=== PATIENT | female | born 1995 | race Two or more races ===

== ENCOUNTER 2023-08-09 12:39 | Emergency (ER) | payer OTHER ==
[2023-08-09 13:23] LABS: BASOPHILS % (AUTO) 0.4 %; EOSINOPHILS # (AUTO) 0.1 10^3/uL (0.0-0.7); EOSINOPHILS % (AUTO) 2.1 %; HCT - HEMATOCRIT 39.7 % (37.0-47.0); HGB - HEMOGLOBIN 12.3 g/dL (12.0-16.0); LYMPHOCYTES % (AUTO) 35.9 %; MEAN CORPUSCULAR HEMOGLOBIN 25.4 pg (27.0-31.0); MEAN PLATELET VOLUME 9.8 fL (7.9-10.8); MONOCYTES # (AUTO) 0.4 10^3/uL (0.0-1.0); MONOCYTES % (AUTO) 7.9 %; NEUTROPHILS % (AUTO) 53.5 %; PLT - PLATELET COUNT 324 10^3/uL (130-450); RED BLOOD COUNT 4.84 10^6/uL (4.20-5.40); RED CELL DISTRIBUTION WIDTH 14.3 % (12.0-15.0); WHITE BLOOD COUNT 5.6 x10^3/uL (4.8-10.8)
--- NOTE | 2023-08-09 13:31 | ED Physician Documentation ---
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 Patient states she feels like the thoughts become intrusive and she cannot get them out of her head. She reports having thoughts of cutting herself or jumping off a bridge. She denies trying to hurt herself in the past. She does see a counselor at [facility] [employer] [facility] every 2 weeks and last saw her 1 week ago. She does not feel this is helpful feels like she needs more than outpatient counseling. She has been on medications for depression and anxiety in the past but states that these also have not helped. She reports stressors with family as well as her job. Her and son are in the waiting room. Denies alcohol or drug use.Does not take any medications regularly. Review of Systems Constitutional: denies: Fever Cardiac: denies: Chest pain / pressure Respiratory: denies: Dyspnea GI: denies: Abdominal Pain Psychiatric: reports: Depressed, Suicidal PD PAST MEDICAL HISTORY - Past Medical History Past Medical History: Yes Psych: Depression, Anxiety - Past Surgical History Past Surgical History: No HEENT: Myringotomy (tubes) - Present Medications Home Medications: Ambulatory Orders Medication Instructions Recorded Confirmed Levonorgestrel/Ethin.estradiol 1 each PO DAILY 08/09/23 08/09/23 [Kurvelo-28 Tablet] - Allergies Allergies/Adverse Reactions: Allergies Allergy/AdvReac Type Severity Reaction Status Date / Time No Known Drug Allergies Allergy Verified 08/09/23 12:59 - Social History Does the pt smoke?: No Smoking Status: Never smoker Does the pt drink ETOH?: No - Immunizations Immunizations are current?: No PD ED PE NORMAL - General General: Alert and oriented X 3, No acute distress, Well developed/nourished - HEENT HEENT: Atraumatic, Moist mucous membranes, Pharynx benign - Neck Neck: Supple, no meningeal sign - Cardiac Cardiac: RRR, Strong equal pulses - Respiratory Respiratory: No respiratory distress, Clear bilaterally - Abdomen Abdomen: Soft, Non tender, Non distended - Derm Derm: Warm and dry - Neuro Neuro: Alert and oriented X 3, No motor deficit, Normal speech - Psych Psych: Other (Withdrawn, soft-spoken, tearful) Results - Vitals Vitals: Vital Signs - 24 hr 08/09/23 08/09/23 12:54 16:00 Temperature 36.5 C 36.6 C Heart Rate 89 87 Respiratory 15 16 Rate Blood Pressure 123/81 H 123/84 H O2 Saturation 100 99 Oxygen O2 Source Room air - Labs Labs: Laboratory Tests 08/09/23 08/09/23 08/09/23 13:13 13:13 13:39 WBC 5.6 RBC 4.84 Hgb 12.3 Hct 39.7 MCV 82.0 MCH 25.4 L MCHC 31.0 L RDW 14.3 Plt Count 324 MPV 9.8 Neut # (Auto) 3.0 Lymph # (Auto) 2.0 [place] # (Auto) 0.4 Eos # (Auto) 0.1 Baso # (Auto) 0.0 Absolute Nucleated RBC 0.00 Nucleated RBC % 0.0 Sodium 138 Potassium 4.0 Chloride 107 Carbon Dioxide 26 Anion Gap 5.0 L BUN 11 Creatinine 0.8 Estimated GFR (MDRD) 87 L Glucose 83 Calcium 9.6 Magnesium 1.9 Total Bilirubin 0.6 AST 14 ALT 9 L Alkaline Phosphatase 81 Total Creatine Kinase 115 Total Protein 8.1 Albumin 4.3 Globulin 3.8 Albumin/Globulin Ratio 1.1 Lipase 13 TSH 2.34 Urine Color YELLOW Urine Clarity CLEAR Urine pH 6.0 Ur Specific Perrin 1.025 Urine Protein NEGATIVE Urine Glucose (UA) NEGATIVE Urine Ketones NEGATIVE Urine Occult Blood LARGE H Urine Nitrite NEGATIVE Urine Bilirubin NEGATIVE Urine Urobilinogen 0.2 (NORMAL) Ur Leukocyte Esterase NEGATIVE Urine RBC 6-10 H Urine WBC 0-3 Ur Squamous Epith Cells MOD Squamous H Urine Bacteria Few Ur Microscopic Review INDICATED Urine Culture Comments NOT INDICATED Urine HCG, Qual NEGATIVE Salicylates < 1.5 Urine Opiates Screen NEGATIVE Ur Buprenorphine Scrn NEGATIVE Ur Oxycodone Screen NEGATIVE Urine Methadone Screen NEGATIVE Acetaminophen 0.1 Ur Barbiturates Screen NEGATIVE Ur Tricyclics Screen NEGATIVE Ur Phencyclidine Scrn NEGATIVE Ur Amphetamine Screen NEGATIVE U Methamphetamines Scrn NEGATIVE U Benzodiazepines Scrn NEGATIVE Urine Cocaine Screen NEGATIVE U Cannabinoids Screen NEGATIVE Ur Drug Screen Comment CUTOFF CONC BELOW: Ethyl Alcohol < 10.0 SARS-CoV-2 (PCR) 08/09/23 13:51 WBC RBC Hgb Hct MCV MCH MCHC RDW Plt Count MPV Neut # (Auto) Lymph # (Auto) [place] # (Auto) Eos # (Auto) Baso # (Auto) Absolute Nucleated RBC Nucleated RBC % Sodium Potassium Chloride Carbon Dioxide Anion Gap BUN Creatinine Estimated GFR (MDRD) Glucose Calcium Magnesium Total Bilirubin AST ALT Alkaline Phosphatase Total Creatine Kinase Total Protein Albumin Globulin Albumin/Globulin Ratio Lipase TSH Urine Color Urine Clarity Urine pH Ur Specific Perrin Urine Protein Urine Glucose (UA) Urine Ketones Urine Occult Blood Urine Nitrite Urine Bilirubin Urine Urobilinogen Ur Leukocyte Esterase Urine RBC Urine WBC Ur Squamous Epith Cells Urine Bacteria Ur Microscopic Review Urine Culture Comments Urine HCG, Qual Salicylates Urine Opiates Screen Ur Buprenorphine Scrn Ur Oxycodone Screen Urine Methadone Screen Acetaminophen Ur Barbiturates Screen Ur Tricyclics Screen Ur Phencyclidine Scrn Ur Amphetamine Screen U Methamphetamines Scrn U Benzodiazepines Scrn Urine Cocaine Screen U Cannabinoids Screen Ur Drug Screen Comment Ethyl Alcohol SARS-CoV-2 (PCR) NOT DETECTED PD Medical Decision Making - ED course ED course: Patient is a 27-year-old female with a history of depression presenting for evaluation of worsening depression and suicidal thoughts. Recently the suicidal thoughts have become intrusive to where patient is having difficulty blocking them out. Has not tried to hurt herself. Is not currently on medications. She is active duty [employer]. Medical screening labs were obtained and reviewed and without significant findings. Patient has been medically cleared. She was evaluated by social work. She is voluntary for placement. Information has been sent to [facility] as there are reportedly beds that are available. Pt signed out at shift change awaiting acceptance to facility for transfer. Departure - Departure Clinical Impression: Suicidal ideation Condition: Stable Forms: PCP List
[2023-08-09 13:44] LABS: BILIRUBIN,URINE NEGATIVE (NEGATIVE); GLUCOSE, URINE (UA) NEGATIVE (NEGATIVE); KETONES,URINE (UA) NEGATIVE (NEGATIVE); LEUKOCYTE ESTERASE, URINE NEGATIVE (NEGATIVE); NITRITE,URINE NEGATIVE (NEGATIVE); OCCULT BLOOD,URINE LARGE (NEGATIVE); PROTEIN,URINE NEGATIVE (NEGATIVE); UROBILINOGEN,URINE 0.2 (NORMAL) E.U./dL (NORMAL)
[2023-08-09 13:45] LABS: CLARITY,URINE CLEAR (CLEAR); HCG UR QUAL NEGATIVE
[2023-08-09 13:45] LABS: ACETAMINOPHEN 0.1 ug/mL; ALBUMIN 4.3 g/dL (3.2-5.5); ALBUMIN/GLOBULIN RATIO 1.1 (1.0-2.2); ALKALINE PHOSPHATASE 81 IU/L (42-121); ALT ALANINE AMINOTRANSFERASE 9 IU/L (10-60); AST ASPARTATE AMINOTRANSFERASE 14 IU/L (10-42); BILIRUBIN,TOTAL 0.6 mg/dL (0.2-1.0); BUN - BLOOD UREA NITROGEN 11 mg/dL (6-20); CALCIUM 9.6 mg/dL (8.5-10.3); CARBON DIOXIDE - CO2 26 mmol/L (21-32); CHLORIDE 107 mmol/L (101-111); CK- CREATINE KINASE 115 IU/L (30-223); CREATININE 0.8 mg/dL (0.6-1.3); ETOH - ETHANOL < 10.0 mg/dL; GFR - MDRD 87 (>89); GLUCOSE 83 mg/dL (74-104); LIPASE 13 U/L (11-82); MAGNESIUM 1.9 mg/dL (1.7-2.3); SODIUM 138 mmol/L (135-145); TOTAL PROTEIN 8.1 g/dL (6.4-8.9)
[2023-08-09 13:52] LABS: THYROID STIMULATING HORMONE 2.34 uIU/mL (0.34-5.60)
[2023-08-09 13:53] LABS: SQUAMOUS EPITHELIAL CELL,UR MOD Squamous (<= Few); WBC,URINE 0-3 /HPF (0-5)
[2023-08-09 13:54] LABS: BACTERIA,URINE Few /HPF (None Seen)
[2023-08-09 13:55] LABS: AMPHETAMINE SCREEN,URINE NEGATIVE (NEGATIVE); BARBITURATE SCREEN,UR NEGATIVE (NEGATIVE); BENZODIAZEPINES SCREEN, URINE NEGATIVE (NEGATIVE); BUPRENORPHINE SCREEN, URINE NEGATIVE (NEGATIVE); COCAINE SCREEN URINE NEGATIVE (NEGATIVE); METHADONE SCREEN, URINE NEGATIVE (NEGATIVE); METHAMPHETAMINES SCREEN, URINE NEGATIVE (NEGATIVE); OPIATE SCREEN, URINE NEGATIVE (NEGATIVE); OXYCODONE SCREEN, URINE NEGATIVE (NEGATIVE); THC CANNABINOID SCREEN, URINE NEGATIVE (NEGATIVE); TRICYCLIC ANTIDEPRESSANT,URINE NEGATIVE (NEGATIVE)
[2023-08-09 14:08] LABS: SALICYLATE < 1.5 mg/dL
[2023-08-09 16:11] VITALS: BP 123/84; O2SAT 99
--- NOTE | 2023-08-09 19:46 | ED Physician Documentation ---
ED Addendum - Addendum Addendum: 08/09/23 19:45 I received signout on this patient from Dr. Helms, please see her note for full H&P. I discussed the case with RAMON Dowling, psychiatry at [facility]. She accepts the patient in transfer. COBRA forms completed. Patient will be transferred for further care. Departure - Departure Disposition: [facility] Psych Hosp/Unit DC/Xfer Clinical Impression: Suicidal ideation Depression Qualifiers: Depression Type: unspecified Qualified Code(s): F32.A - Depression, unspecified Condition: Stable Forms: PCP List
== END 2023-08-09 23:08 ==
LOC: ED 12:39
DX: R45.851 Suicidal ideations (principal); F32.A Depression, unspecified; Z63.8 Other specified problems related to primary support group; Z56.3 Stressful work schedule; Z11.52 Encounter for screening for COVID-19
CPT/HCPCS: 36415; 80053; 80143; 80179; 80306; 81001; 81003; 81025; 82077; 82550; 83690; 83735; 84443; 85025; 87086; 87635; 99285

== ENCOUNTER 2023-09-15 08:00 | Outpatient (CLI) | payer OTHER ==
[2023-09-15 18:57] LABS: BILIRUBIN,URINE SMALL (NEGATIVE); GLUCOSE, URINE (UA) NEGATIVE (NEGATIVE); KETONES,URINE (UA) TRACE mg/dL (NEGATIVE); LEUKOCYTE ESTERASE, URINE TRACE (NEGATIVE); NITRITE,URINE NEGATIVE (NEGATIVE); OCCULT BLOOD,URINE NEGATIVE (NEGATIVE); PROTEIN,URINE NEGATIVE (NEGATIVE); UROBILINOGEN,URINE 4 E.U./dL (NORMAL)
[2023-09-15 19:23] LABS: CLARITY,URINE CLOUDY (CLEAR)
[2023-09-15 19:26] LABS: AMORPHOUS SEDIMENT,UR Marked /LPF; BACTERIA,URINE Few /HPF (None Seen); MUCUS,URINE Moderate Strands; RBC,URINE 0-5 /HPF (0-5); SQUAMOUS EPITHELIAL CELL,UR RARE Squamous (<= Few); WBC,URINE 0-3 /HPF (0-5)
== END 2023-09-15 23:59 | disposition home or self-care (01) ==
LOC: LAB.WC 08:00
PROVIDERS: ATTEND Nurse Practitioner
DX: Z34.00 Encounter for supervision of normal first pregnancy, unspecified trimester (principal)
CPT/HCPCS: 36415; 81001; 84702; 87086

== ENCOUNTER 2023-09-15 15:16 | Outpatient (CLI) | payer OTHER | END 2023-09-15 15:17 | disposition home or self-care (01) | LOC: LAB 15:16 | PROVIDERS: ATTEND Nurse Practitioner | DX: Z32.01 Encounter for pregnancy test, result positive (principal) | CPT/HCPCS: 36415; 84702 ==

== ENCOUNTER 2023-09-19 22:04 | Outpatient (CLI) | payer OTHER ==
--- NOTE | 2023-09-20 16:55 | Ultrasound Report ---
PROCEDURE: OB 1st Trimester w/TV INDICATIONS: POSITIVE TEST OUTSIDE/PRIOR DATING DATA: Last menstrual period (LMP): Unknown. LMP-based estimated date of delivery (SVETLANA): Unknown. First dating scan (date and location): 09/19/2023. Estimated date of delivery (SVETLANA) from first dating scan: 05/08/2024. TECHNIQUE: Real-time scanning was performed of the fetus and maternal pelvic organs, with image documentation. Endovaginal scanning was also performed to better visualize the fetus and maternal ovaries. COMPARISON: None. FINDINGS: Intrauterine gestational sac present. Embryo: Ogema-rump length measures 0.8 cm corresponding to 6 weeks 6 days. Heart rate: 119 bpm. Other: Perigestational hemorrhage is present measuring 2.1 x 0.9 x 1.8 cm. Measurement variability in dating: +/- 4 weeks by LMP, +/- 7 days by mean sac diameter (use before 6 weeks gestation if crown-rump length not able to be measured), +/- 5 days by crown-rump length (6-12 weeks gestation). Maternal organs: Ovaries demonstrate left corpus luteal cyst. IMPRESSION: Single live intrauterine with gestational age of 6 weeks 6 days. Small perigestational hemorrhage. Reviewed by: Tamiko Shearer MD on 09/20/2023 4:54 PM PDT Approved by: Tamiko Shearer MD on 09/20/2023 4:54 PM PDT Station ID: [id number]
== END 2023-09-19 22:05 | disposition home or self-care (01) ==
LOC: DI 22:04
PROVIDERS: ATTEND Nurse Practitioner
DX: O20.9 Hemorrhage in early pregnancy, unspecified (principal); Z3A.01 Less than 8 weeks gestation of pregnancy

== ENCOUNTER 2023-10-24 18:09 | Outpatient (CLI) | payer OTHER | END 2023-10-24 18:10 | disposition home or self-care (01) | LOC: LAB 18:09 | PROVIDERS: ATTEND Obstetrics & Gynecology | DX: Z34.00 Encounter for supervision of normal first pregnancy, unspecified trimester (principal) | CPT/HCPCS: 36415 ==

== ENCOUNTER 2023-11-01 13:51 | Outpatient (CLI) | payer OTHER ==
[2023-11-01 14:12] LABS: BASOPHILS % (AUTO) 0.3 %; EOSINOPHILS # (AUTO) 0.1 10^3/uL (0.0-0.7); HCT - HEMATOCRIT 38.4 % (37.0-47.0); HGB - HEMOGLOBIN 12.6 g/dL (12.0-16.0); LYMPHOCYTES # (AUTO) 2.8 10^3/uL (1.5-3.5); LYMPHOCYTES % (AUTO) 23.4 %; MEAN CORPUSCULAR HEMOGLOBIN 26.5 pg (27.0-31.0); MEAN CORPUSCULAR HGB CONC 32.8 g/dL (32.0-36.0); MEAN CORPUSCULAR VOLUME 80.8 fL (81.0-99.0); MEAN PLATELET VOLUME 10.2 fL (7.9-10.8); MONOCYTES # (AUTO) 0.7 10^3/uL (0.0-1.0); MONOCYTES % (AUTO) 5.7 %; NEUTROPHILS # (AUTO) 8.2 10^3/uL (1.5-6.6); NEUTROPHILS % (AUTO) 69.3 %; PLT - PLATELET COUNT 301 10^3/uL (130-450); RED BLOOD COUNT 4.75 10^6/uL (4.20-5.40); RED CELL DISTRIBUTION WIDTH 15.7 % (12.0-15.0); WHITE BLOOD COUNT 11.9 x10^3/uL (4.8-10.8)
[2023-11-01 14:26] LABS: MAGNESIUM 1.7 mg/dL (1.7-2.3)
[2023-11-01 14:33] LABS: ALBUMIN/GLOBULIN RATIO 1.1 (1.0-2.2); BILIRUBIN,TOTAL 0.4 mg/dL (0.2-1.0); CALCIUM 9.6 mg/dL (8.5-10.3); CREATININE 0.6 mg/dL (0.6-1.3); POTASSIUM 3.7 mmol/L (3.5-4.5); TOTAL PROTEIN 7.5 g/dL (6.4-8.9)
[2023-11-01 14:52] LABS: FERRITIN 6.4 ng/mL (11.0-306.8)
[2023-11-01 18:39] LABS: BACTERIAL VAGINOSIS DNA NEGATIVE (NEGATIVE); CANDIDA GLABRATA DNA NEGATIVE (NEGATIVE); CANDIDA GROUP DNA NEGATIVE (NEGATIVE); CANDIDA KRUSEI DNA NEGATIVE (NEGATIVE); CHLAMYDIA TRACHOMATIS DNA NEGATIVE (NEGATIVE); NEISSERIA GONORRHOEAE DNA NEGATIVE (NEGATIVE); TRICHOMONAS VAGINALIS DNA NEGATIVE (NEGATIVE)
[2023-11-02 03:10] LABS: HBsAG SCREEN Negative (Negative)
[2023-11-02 05:14] LABS: RPR Non Reactive (Non Reactive)
[2023-11-02 06:11] LABS: HIV SCREEN 4TH GENERATION Non Reactive (Non Reactive)
[2023-11-02 09:11] LABS: VARICELLA-ZOSTER AB IGG 1459 index (Immune >165)
[2023-11-03 00:08] LABS: HCV AB Non Reactive (Non Reactive)
== END 2023-11-01 13:52 | disposition home or self-care (01) ==
LOC: LAB 13:51
PROVIDERS: ATTEND Nurse Practitioner
DX: O99.891 Other specified diseases and conditions complicating pregnancy (principal); R42 Dizziness and giddiness; N89.8 Other specified noninflammatory disorders of vagina; Z36.89 Encounter for other specified antenatal screening
CPT/HCPCS: 36415; 80053; 81514; 82728; 83735; 85025; 86592; 86762; 86787; 86803; 86850; 86900; 86901; 87340; 87389; 87491; 87591; 87661

== ENCOUNTER 2023-12-08 11:03 | Outpatient (CLI) | payer OTHER | END 2023-12-08 11:04 | disposition home or self-care (01) | LOC: LAB 11:03 | PROVIDERS: ATTEND Nurse Practitioner | DX: Z34.80 Encounter for supervision of other normal pregnancy, unspecified trimester (principal); Z36.0 Encounter for antenatal screening for chromosomal anomalies | CPT/HCPCS: 36415; 82105 ==

== ENCOUNTER 2023-12-21 23:41 | Outpatient (CLI) | payer OTHER ==
[2023-12-22 00:50] LABS: BILIRUBIN,URINE NEGATIVE (NEGATIVE); GLUCOSE, URINE (UA) NEGATIVE (NEGATIVE); KETONES,URINE (UA) NEGATIVE (NEGATIVE); LEUKOCYTE ESTERASE, URINE MODERATE (NEGATIVE); NITRITE,URINE NEGATIVE (NEGATIVE); OCCULT BLOOD,URINE TRACE-INTA (NEGATIVE); PROTEIN,URINE NEGATIVE (NEGATIVE); UROBILINOGEN,URINE 1 (NORMAL) E.U./dL (NORMAL)
[2023-12-22 01:09] LABS: CLARITY,URINE HAZY (CLEAR); WBC,URINE >25 /HPF (0-5)
[2023-12-22 01:10] LABS: BACTERIA,URINE Moderate /HPF (None Seen); CRYSTALS,URINE 0-2 Calcium Oxalate /LPF; MUCUS,URINE Moderate Strands; SQUAMOUS EPITHELIAL CELL,UR FEW Squamous (<= Few)
--- NOTE | 2023-12-22 01:22 | PROVIDER PROGRESS NOTE ---
<Luisa Latif - Last Filed: 12/22/23 01:24> - HPI Chief Complaint: symptoms - Plan Plan: 28 yo @ 20+2 weeks gestation came to L&D for triage after increased pelvic cramping/discomfort x 4-6 hours. No leaking or bleeding but some frequency/ burning with urination. Some vaginal itching/irritation. Endorses limited hydration through the day. Comforted by + FHT and absence of contractions. UA pending. Declined need for speculum exam. Comfortable going home with follow-up in the AM with any necessary treatment. Encouraged continued oral hydration. <Jamison Nesbitt - Last Filed: 12/22/23 14:37> - Plan Plan: Discussed evaluation and plan with RAMON Latif and agree. FHT appropriate for gestational age. Patient comfortable with plan. Will follow up with tests as an outpatient.
[2023-12-22 03:58] LABS: BACTERIAL VAGINOSIS DNA NEGATIVE (NEGATIVE); CANDIDA GLABRATA DNA NEGATIVE (NEGATIVE); CANDIDA GROUP DNA NEGATIVE (NEGATIVE); CANDIDA KRUSEI DNA NEGATIVE (NEGATIVE); TRICHOMONAS VAGINALIS DNA NEGATIVE (NEGATIVE)
[2023-12-22 05:54] LABS: CHLAMYDIA TRACHOMATIS DNA NEGATIVE (NEGATIVE); NEISSERIA GONORRHOEAE DNA NEGATIVE (NEGATIVE)
== END 2023-12-22 01:25 | disposition home or self-care (01) ==
LOC: WFO 23:41 → FBP 23:43 → OBS 12-22 00:17 → FBP 12-22 00:18 → WFO 12-22 01:25
PROVIDERS: ATTEND Obstetrics & Gynecology
DX: O99.891 Other specified diseases and conditions complicating pregnancy (principal); R10.2 Pelvic and perineal pain; R35.0 Frequency of micturition; R30.0 Dysuria; O26.892 Other specified pregnancy related conditions, second trimester; L29.2 Pruritus vulvae; Z3A.20 20 weeks gestation of pregnancy
CPT/HCPCS: 81001; 81514; 87086; 87181; 87491; 87591; 87661; 99213

== ENCOUNTER 2024-01-04 23:39 | Emergency (ER) | payer OTHER ==
--- NOTE | 2024-01-05 02:10 | ED Physician Documentation ---
History of Present Illness - Stated complaint Stated Complaint: RT HAND INJ - Chief complaint Chief Complaint: Ext Problem - History obtained from History obtained from: Patient, Family (spouse) - Additonal information Additional information: 28-year-old woman G2, P1 at 22 weeks gestation with history of anemia presents with right anterior wrist bruise of unknown origin for the past couple days. iTmo valenzuela states that she thrashes around in her sleep sometimes and thinks she may have hit her nightstand. She denies pain with range of motion or pain at rest but states that it hurts when she presses down hard on the bruise. Denies numbness or weakness. No other areas of injury PD PAST MEDICAL HISTORY - Past Medical History Past Medical History: Yes Psych: Depression, Anxiety - Past Surgical History Past Surgical History: No HEENT: Myringotomy (tubes) - Present Medications Home Medications: Ambulatory Orders Medication Instructions Recorded Confirmed Levonorgestrel/Ethin.estradiol 1 each PO DAILY 08/09/23 08/09/23 [Kurvelo-28 Tablet] - Allergies Allergies/Adverse Reactions: Allergies Allergy/AdvReac Type Severity Reaction Status Date / Time No Known Drug Allergies Allergy Verified 01/04/24 23:52 - Social History Does the pt smoke?: No Smoking Status: Never smoker Does the pt drink ETOH?: No - Immunizations Immunizations are current?: No PD ED PE NORMAL - Vitals Vital signs reviewed: Yes - General General: Alert and oriented X 3, No acute distress, Well developed/nourished - HEENT HEENT: Atraumatic, PERRL, EOMI - Neck Neck: Supple, no meningeal sign - Derm Derm: Normal color, Warm and dry, Other (5cm diameter area of ecchymosis to volar aspect of R wrist. nontender to palpation. nontender with rom. 2+ radial pulse. normal sensation, strength) - Extremities Extremities: Other (5cm diameter area of ecchymosis to volar aspect of R wrist. nontender to palpation. nontender with rom. 2+ radial pulse. normal sensation, strength) Results - Vitals Vitals: Vital Signs - 24 hr 01/04/24 23:50 Temperature 36.4 C L Heart Rate 90 Respiratory 16 Rate Blood Pressure 128/71 O2 Saturation 99 Oxygen O2 Source Room air PD Medical Decision Making - ED course ED course: 28-year-old woman presents with right wrist bruise of unknown origin. She states that she has had mild anemia in the past and had recent blood work with her TRACTOR DRILL OPERATOR that was stable. Denies other injuries or complaints. Upon exam, the wrist is nontender with full range of motion and normal pulse, with an area of ecchymosis that is discrete and nontender. We discussed that she can follow- up with her TRACTOR DRILL OPERATOR for outpatient lab work. Return precautions given. Normal heart rate. denies abdominal cramping, vaginal bleeding or discharge. return precautions given. Departure - Departure Disposition: 01 Home, Self Care Clinical Impression: Ecchymosis of wrist Condition: Stable Instructions: Bruises Contusions Comments: You were seen in the emergency department for evaluation of a bruise. It does not appear to be dangerous at this time. You can take tylenol as needed for pain. Please follow-up with your toll service observer for blood work and return to the emergency department if you have any new or worsening symptoms or other concerns.
[2024-01-05 02:14] VITALS: BP 122/68; O2SAT 98
== END 2024-01-05 02:11 | disposition home or self-care (01) ==
LOC: ED 23:39
DX: O9A.212 Injury, poisoning and certain other consequences of external causes complicating pregnancy, second trimester (principal); S60.211A Contusion of right wrist, initial encounter; O99.012 Anemia complicating pregnancy, second trimester; Z3A.22 22 weeks gestation of pregnancy; X58.XXXA Exposure to other specified factors, initial encounter
CPT/HCPCS: 99281; 99282

== ENCOUNTER 2024-01-06 08:08 | Outpatient (CLI) | payer OTHER ==
--- NOTE | 2024-01-06 15:29 | Ultrasound Report ---
PROCEDURE: OB Anatomy Scan INDICATIONS: SUPERVISION OF NORMAL OUTSIDE/PRIOR DATING DATA: Last menstrual period (LMP): Unknown. First dating scan (date and location): 09/19/2023. Estimated date of delivery (SVETLANA) from first dating scan: 05/08/2024. TECHNIQUE: Real-time scanning was performed of the fetus, with image documentation and biometric measurements. COMPARISON: 09/19/2023 FINDINGS: General: A single living intrauterine gestation is present. Presentation: Vertex Placenta: Placental position is posterior, without previa. Amniotic fluid index: 12.5 cm, within normal limits for gestational age. heart rate: 138 beats per minute. Maternal cervical canal: 3.4 cm long; normal length is 2.5 cm or more. biometrics: Biparietal diameter: 5.35 cm, 22 weeks and 2 days, 39.7% Head circumference: 20 cm, 22 weeks and 1 day, 25.7% Abdominal circumference: 17.9 cm, 22 weeks and 5 days, 51.8% Femur length: 4.14 cm, 23 weeks and 3 days, 73.1% Estimated gestational age from initial scan: 22 weeks and 3 days Composite gestational age from present scan: 22 weeks and 4 days Estimated weight and percentile: 547 g, 68.7% Measurement variability in biometric dating: +/- 10 days from 12-20 weeks gestation, +/- 2 weeks from 20-30 weeks gestation, +/- 3 weeks at 30 weeks gestation or later. Anatomic survey: Neuro: Ventricles are normal at less than 10 mm. Cisterna magna is normal at 3-11 mm. Cerebellum i s normal in size and morphology. Nuchal skin fold: Normal at less than 6 mm between 14 and 20 weeks gestational age. Face: Nose and lips, facial profile are normal. Spine: No evidence for spina bifida. Heart: 4-chambered heart is present, with normal ventricular outflow tracts. Diaphragm: Diaphragm is intact. Stomach: Left-sided stomach is present. Kidneys: No hydronephrosis. Normal is less than 5 mm in 2nd trimester, less than 7 mm in 3rd trimester. Cord: 3 vessel cord has orthotopic insertion. Bladder: Normal in size. Extremities: All 4 extremities are visualized. IMPRESSION: Living intrauterine gestation at 22 weeks and 3 days, EFW at the 68.7 percentile. Vertex positioning. Normal HIRAM. No significant abnormalities on routine anatomic survey. Reviewed by: Lenny Ho MD on 01/06/2024 3:27 PM PDT Approved by: Lenny Ho MD on 01/06/2024 3:27 PM PDT Station ID: [id number]
== END 2024-01-06 08:09 | disposition home or self-care (01) ==
LOC: DI 08:08
PROVIDERS: ATTEND Nurse Practitioner
DX: Z34.82 Encounter for supervision of other normal pregnancy, second trimester (principal)

== ENCOUNTER 2024-05-03 07:47 | Inpatient (IN) ==
[2024-05-03] MEDS ORDERED: lidocaine 1% 20 ML MDV ID PRN (07:57)
[2024-05-03] MEDS ORDERED: CARBOPROST TROMETHAMINE 250 MCG/ML VIAL IM PRN (07:57)
[2024-05-03] MEDS ORDERED: NIFEdipine 10 MG CAPSULE PO PRN (07:57)
[2024-05-03] MEDS ORDERED: ONDANSETRON 4 MG/2 ML VIAL IVP PRN (07:57)
[2024-05-03] MEDS ORDERED: METOCLOPRAMIDE 10 MG TABLET PO PRN (07:57)
[2024-05-03] MEDS ORDERED: METHYLERGONOVINE 0.2 MG/ML VIAL IM PRN (07:57)
[2024-05-03] MEDS ORDERED: miSOPROStoL 200 MCG TABLET BC PRN (07:57)
[2024-05-03] MEDS ORDERED: TRANEXAMIC ACID IN NACL 1,000 MG/100 ML BAG IV PRN (07:57)
[2024-05-03] MEDS ORDERED: LABETALOL 20 MG/4 ML SYRINGE IVP PRN ×3 (07:57)
[2024-05-03] MEDS ORDERED: ONDANSETRON ODT 4 MG TABLET TL PRN (07:57)
[2024-05-03] MEDS ORDERED: LACTATED RINGERS 1,000 ML IV PRN (07:57)
[2024-05-03] MEDS ORDERED: hydrALAZINE INJ 20 MG/ML VIAL IVP PRN ×2 (07:57)
[2024-05-03] MEDS ORDERED: METOCLOPRAMIDE 10 MG/2 ML VIAL IVP PRN (07:57)
[2024-05-03] MEDS ORDERED: SODIUM CHLORIDE FLUSH 0.9% 10 ML SYRINGE IVP PRN (07:57)
[2024-05-03] MEDS ORDERED: OXYTOCIN 10 UNIT/ML VIAL IM PRN (07:57)
[2024-05-03] MEDS: OXYTOCIN/SODIUM CHLORIDE 500 ML IV SCH (08:45)
[2024-05-03] MEDS: LACTATED RINGERS 1,000 ML IV PRN (08:45)
[2024-05-03 08:47] LABS: BASOPHILS % (AUTO) 0.2 %; EOSINOPHILS # (AUTO) 0.1 10^3/uL (0.0-0.7); EOSINOPHILS % (AUTO) 1.1 %; HCT - HEMATOCRIT 38.8 % (37.0-47.0); HGB - HEMOGLOBIN 12.2 g/dL (12.0-16.0); LYMPHOCYTES # (AUTO) 2.4 10^3/uL (1.5-3.5); LYMPHOCYTES % (AUTO) 19.8 %; MEAN CORPUSCULAR HEMOGLOBIN 25.5 pg (27.0-31.0); MEAN CORPUSCULAR HGB CONC 31.4 g/dL (32.0-36.0); MEAN PLATELET VOLUME 10.2 fL (7.9-10.8); MONOCYTES # (AUTO) 0.8 10^3/uL (0.0-1.0); MONOCYTES % (AUTO) 6.9 %; NEUTROPHILS # (AUTO) 8.7 10^3/uL (1.5-6.6); NEUTROPHILS % (AUTO) 71.4 %; PLT - PLATELET COUNT 311 10^3/uL (130-450); RED BLOOD COUNT 4.79 10^6/uL (4.20-5.40); RED CELL DISTRIBUTION WIDTH 17.1 % (12.0-15.0); WHITE BLOOD COUNT 12.2 x10^3/uL (4.8-10.8)
--- NOTE | 2024-05-03 09:23 | HISTORY & PHYSICAL EXAMINATION ---
Admit History Smoking Status: Never smoker HPI Current : Vital Signs Temperature 37.0 C 05/03/24 07:58 Pulse Rate 97 05/03/24 07:58 Respiratory Rate 16 05/03/24 07:58 Blood Pressure 135/82 H 05/03/24 07:58 Meds/Allgy Home Medications Ambulatory Orders Medication Instructions Recorded Confirmed aspirin 81 mg tablet,delayed 81 mg PO QDAY 02/09/24 05/01/24 release (Adult Aspirin Regimen) hydroxyzine HCl 25 mg tablet 25 mg PO BID PRN 02/09/24 05/01/24 sertraline 100 mg tablet 100 mg PO QDAY 02/09/24 05/01/24 famotidine 20 mg tablet (Pepcid) 20 mg PO BID #180 tabs 03/16/24 05/01/24 Allergies Allergies Allergy/AdvReac Type Severity Reaction Status Date / Time No Known Drug Allergies Allergy Verified 05/01/24 11:31 [facility] Medical History Medical History (Updated 05/03/24 @ 00:01 by ) Elevated blood pressure reading without diagnosis of hypertension Surgical History Surgical History (Updated 03/13/24 @ 18:12 by Bisi Brantley MA) History of ear surgery Family History Family History (Updated 03/13/24 @ 18:12 by Bisi Brantley MA) Other Adopted Social History Social History Smoking Status: Never smoker Do you dip or chew tobacco?: No Relationship: Do you feel safe in your home environment?: Yes Suffered physical, verbal, emotional, or financial abuse?: No History of Abuse: No Physical Abdominal Exam Vital Signs: Temp Pulse Resp BP 37.0 C 97 16 135/82 H 05/03/24 07:58 05/03/24 07:58 05/03/24 07:58 05/03/24 07:58 Plan for Labor Plan For Labor I expect patient to be DC'd or transferred within 96 hours.: Yes Plan for Labor: HPI: Nicanor is a 28yo @ 39.2wks gestation who presents today for elective induction of labor. She denies vaginal bleeding or leakage of fluid. She has had intermittent contractions for the past couple of days. Cervix was 4/80/-1 and vertex with intact membranes at her last routine office visit and SVE was deferred today secondary to absence of significant contractions. She reports +FM. She has been a patient of [facility] for the duration of her which has been complicated by anemia for which she received IV iron infusions. In addition she has had some social complications in her . She was inpatient at [facility] in [place] for 28 days ending in mid-September. In addition, her Ryne was recently discharged form the [place] and [facility] and moved back to [place] with their son. She is currently living with a close friend in [place]. She has her own room their and will live with her friend until at least 6 weeks at which time she plans to move back to [place] to be with her family. Dating criteria: LMP: unknown SVETLANA by LMP: n/a US:09/19/2023 @ 6+6 Final SVETLANA: 05/08/2024 OB Hx: G1: 11/26/2021, NVSD. Male. 6hr labor. Medical Hx: Anxiety/Depression Surgical Hx: Ear surgery Family Hx: Adopted Social Hx: Never smoker. No ETOH or IVDA. Ryne in [place], son Kathia born 11/26/21. Ryne was recently discharged from the [place] and is living in [place] with their son with him. She and the baby will move in with her friend in [place] until after her 6 week visit at which time they will move to [place] to be with her family. course: -It's a boy, Ryne Mendez -Significant mental health issues, in-patient at [facility] in [place] for 28 days ending mid September. Pre- Weight: 149 BMI: 25.74 Blood type: O+ Antibody: Negative CBC: PLT 301 HCT 38.4 HGB 12.6 RUB: Immune VZV: Immune HBsAg: Negative HepC: NR RPR/AB-EIA: NR HIV: NR PAP:2020- wants GC/CT: 10/31 Negative HSV: denies in self and partner Genetic testing:[id number]- Negative AFP - Negative Covid: declined Flu: declined FAS:01/06/2024 Placenta: posterior Cord: 3VC HIRAM: 12.5cm EFW: 547g; 68.7%tile 50gm OGCT: 143 TDAP: 04/11 Breast Pump: done RSV: 03/13/2024 3rd trimester H/H PLT 380 HCT 34.1 HGB 10.7 3rd trimester RPR NR GBS: Neg Delivery Plan: Desires unmedicated delivery, delayed cord clamping, . Contraception: Kyleena IUD Physical Exam: Normocephalic, atraumtic Heart RRR w/o M/G/R Lungs CTAB Abdomen gravid, soft, nontender FHR baseline 140s, moderate variability, + accels, no decels Contractions palpate mild intermittently with soft resting tone SVE deferred Bilateral LE's no edema Mood is good Assessment: 28yo @ 39.2wks gestation Elective induction of labor at term gestation GBS negative FHR Category I Anxiety/Depression complicating Plan: Admit to [facility] for elective IOL at term getstation with pitocin. Initiate pitocin for induction of labor with titration per protocol. Continuous monitoring. Jacuzzi PRN. Nitrous oxide PRN. Epidural per maternal request. Anticipate . Conclusion/Plan Lab Results 05/03/24 08:20
[2024-05-03] MEDS: miSOPROStoL 100 MCG TABLET VG SCH (10:48)
--- NOTE | 2024-05-03 11:21 | PHARMACY PROGRESS NOTE ---
Best Possible Medication History Admit Date and Time: 05/03/24 [id number] Home Medications Medication Instructions Recorded Confirmed Type aspirin 81 mg tablet,delayed 81 mg PO QDAY 02/09/24 05/03/24 History release (Adult Aspirin Regimen) sertraline 100 mg tablet 100 mg PO QDAY 02/09/24 05/03/24 History famotidine 20 mg tablet (Pepcid) 20 mg PO BID #180 tabs 03/16/24 05/03/24 Rx Processed by: Nursing (patient unavailable for interview at this time, nursing was able to provide update on current medications) Medications reviewed in ED?: No Medication History completed: Yes Patient Interview: Pt unable to participate Secondary Source(s): Insurance records [facility] Statement: As the person ultimately responsible for medication therapy, providers are able to order a medication from an existing home medication list in [facility] via the "Reconcile Routine" prior to Confirmation of that medication by business support assistant. Such practice is discouraged except when the physician, in their clinical judgment, deems that a medical need exists for a medication without regard to previous use.
[2024-05-03] MEDS: OXYTOCIN/SODIUM CHLORIDE 500 ML IV PRN (13:04)
[2024-05-03] MEDS ORDERED: OXYTOCIN/SODIUM CHLORIDE 500 ML IV PRN (13:46)
[2024-05-03] MEDS ORDERED: SIMETHICONE CHEW 80 MG TABLET PO PRN (13:46)
[2024-05-03] MEDS ORDERED: ACETAMINOPHEN 500 MG TABLET PO PRN (13:46)
[2024-05-03] MEDS ORDERED: HYDROCORTISONE 1% CREAM 28 GM TUBE TOP PRN (13:46)
[2024-05-03] MEDS ORDERED: WITCH HAZEL/GLYCERIN 1 PAD TOP PRN (13:46)
--- NOTE | 2024-05-03 13:57 | DELIVERY NOTE ---
Delivery Note Delivery Outcome Delivery Date: 05/03/24 Delivery Time: 12:56 Delivery Comments (Free Text/Narrative) Delivery Comments (Free Text/Narrative): Labor: This 28yo @ 39.2 wks gestation by 6wk U/S presented to [facility] for elective IOL on 05/03/2024. Cervix was 4/80/-1 and vertex 3 days prior at routine office visit with absence of contractions and SVE was deferred at time of admission secondarily. FHR demonstrated Category I pattern throughout labor. Pitocin initiated for induction of labor with a maximum infusion rate of 4mu/mL. Precipitous labor course with onset of active labor at 1130. Pt progressed to c/c/+1 and spontaneously pushing at 1240. : Normal SVB of viable male infant en caul @ 1256 on 05/03/2024. Amniotic membranes reduced after delivery and amniotic fluid was noted to be a moderate amount and clear. Nucal cord x 1 delivered through and reduced after delivery. The was placed on maternal abdomen, stimulated, dried, and placed skin to skin. 's were 8/9 at 1 and 5 min respectively. Pitocin administered via IV for hemeostasis. The umbilical cord was allowed to stop pulsating at which time it was doubly clamped by CNM and cut by FOB. Cord blood was obtained. 3VC. Fundal massage and gentle cord traction applied for active management of the third stage. Placenta delivered spontaneously and intact at 1303. EBL 200 mL. Fourth stage: Uterine fundus firm and there is no excessive bleeding. The perineum, vagina, and cervix were inspected and found to be intact. initiated. Both mother and baby were left in stable condition.
[2024-05-03] MEDS: ASPIRIN EC 81 MG TABLET PO SCH (18:37)
[2024-05-03] MEDS: IBUPROFEN 800 MG TABLET PO PRN (20:05)
[2024-05-03] MEDS: SERTRALINE 50 MG TABLET PO SCH (20:05)
[2024-05-03] MEDS: DOCUSATE SODIUM 100 MG CAPSULE PO SCH (20:26)
[2024-05-04] MEDS: FAMOTIDINE 20 MG TABLET PO SCH (04:22)
--- NOTE | 2024-05-04 13:11 | PROVIDER PROGRESS NOTE ---
Subjective Prog Note Date Prog Note Date: 05/04/24 Prog Note Time: 13:00 Subjective Subjective: S: Bonding well with baby. without difficulty. Bleeding decreased and is light. Pain is well controlled with oral medications. She is urinating without difficulty. Has not yet had BM. O: Heart RRR w/o M/G/R, lungs CTAB, abdomen soft and nontender with fundus firm at U, perineum intact, light lochia rubra, bilateral LE's trace edema A: 28yo -->P2 PPD#1 s/p TSVD viable male Normal recovery P: Continue routine care and medications. Evaluate for discharge home tomorrow Current Medications Current Medications Current Medications: Current Medications Generic Name Dose Route Start Last Admin Trade Name Freq PRN Reason Stop Dose Admin Acetaminophen 1,000 mg 05/03/24 13:46 Acetaminophen 500 Mg Tablet PO Q8HR PRN Mild Pain or Fever>38C(100.4F) Carboprost Tromethamine 250 mcg 05/03/24 07:57 Carboprost Tromethamine 250 Mcg/Ml Vial IM 05/08/24 07:58 Q15M PRN Step 4: Hemorrhage protocol Docusate Sodium 100 mg 05/03/24 21:00 05/04/24 12:42 Docusate Sodium 100 Mg Capsule PO 100 mg BID ALMAS Administration Famotidine 20 mg 05/03/24 21:00 05/04/24 04:22 Famotidine 20 Mg Tablet PO Not Given BID ALMAS Hydralazine HCl 5 - 20 mg 05/03/24 07:57 Hydralazine Inj 20 Mg/Ml Vial IVP Q20M PRN SBP >160 or DBP >110 Protocol Hydralazine HCl 10 mg 05/03/24 07:57 Hydralazine Inj 20 Mg/Ml Vial IVP 05/08/24 07:58 .ONCE PRN Step 9 of Labetalol protocol Protocol Hydrocortisone 1 applic 05/03/24 13:46 Hydrocortisone 1% Cream 28 Gm Tube TOP QID PRN PERINEAL REPAIR Lactated Ringer's 1,000 mls @ 100 mls/hr 05/03/24 07:57 05/03/24 13:14 Lr IV Infused .Q10H PRN Infusion Save for active labor Oxytocin/Sodium Chloride 500 mls @ 999 mls/hr 05/03/24 07:57 05/03/24 14:00 Pitocin/Sodium Chloride IV 05/08/24 07:58 Infused PRN PRN Titration POST- HEMORR PREVENTION Protocol 999 MILLIUNIT/MIN Tranexamic Acid 1,000 mg in 100 mls @ 600 mls/hr 05/03/24 07:57 Tranexamic 1,000 Mg/100ml-Nacl IV 05/08/24 07:58 .ONCE PRN EBL >1200mL and within 3hr Lactated Ringer's 1,000 mls @ 999 mls/hr 05/03/24 07:57 Lr IV PRN PRN distress Oxytocin/Sodium Chloride 500 mls @ 2 mls/hr 05/03/24 09:13 05/03/24 13:13 Pitocin/Sodium Chloride IV Infused TITR ALMAS Titration Protocol 2 MILLIUNIT/MIN Oxytocin/Sodium Chloride 500 mls @ 999 mls/hr 05/03/24 13:46 Pitocin/Sodium Chloride IV PRN PRN POST- HEMORR PREVENTION Protocol 999 MILLIUNIT/MIN Ibuprofen 800 mg 05/03/24 13:46 05/04/24 12:42 Ibuprofen 800 Mg Tablet PO 800 mg Q8HR PRN Administration Moderate Pain (Level 4-6) Labetalol HCl 20 - 80 mg 05/03/24 07:57 Labetalol 20 Mg/4 Ml Syringe IVP Q10M PRN SBP >160 or DBP >110 Protocol Labetalol HCl 20 mg 05/03/24 07:57 Labetalol 20 Mg/4 Ml Syringe IVP 05/08/24 07:58 .ONCE PRN Step 9 of nifedipine protocol Protocol Labetalol HCl 40 mg 05/03/24 07:57 Labetalol 20 Mg/4 Ml Syringe IVP 05/08/24 07:58 .ONCE PRN Step 9 of hydrALAZine protocol Protocol Lidocaine HCl 20 ml 05/03/24 07:57 Lidocaine 1% 20 Ml Mdv ID 05/08/24 07:58 .ONCE PRN PERINEAL REPAIR Methylergonovine Maleate 0.2 mg 05/03/24 07:57 Methylergonovine 0.2 Mg/Ml Vial IM 05/08/24 07:58 .ONCE PRN Step 2: Hemorrhage protocol Metoclopramide HCl 10 mg 05/03/24 07:57 Metoclopramide 10 Mg Tablet PO Q6H PRN Nausea / Vomiting Metoclopramide HCl 10 mg 05/03/24 07:57 Metoclopramide 10 Mg/2 Ml Vial IVP Q6H PRN Nausea / Vomiting Misoprostol 800 mcg 05/03/24 07:57 Misoprostol 200 Mcg Tablet BC 05/08/24 07:58 .ONCE PRN Step 3: Hemorrhage protocol Nifedipine 10 - 20 mg 05/03/24 07:57 Nifedipine 10 Mg Capsule PO Q20M PRN SBP >160 or DBP >110 Protocol Ondansetron HCl 4 mg 05/03/24 07:57 Ondansetron 4 Mg/2 Ml Vial IVP Q4HR PRN Nausea / Vomiting Ondansetron HCl 4 mg 05/03/24 07:57 Ondansetron Odt 4 Mg Tablet TL Q4HR PRN Nausea / Vomiting Oxytocin 10 unit 05/03/24 07:57 Oxytocin 10 Unit/Ml Vial IM 05/08/24 07:58 .ONCE PRN Step one: If no IV access Sertraline HCl 100 mg 05/03/24 14:00 05/03/24 20:05 Sertraline 50 Mg Tablet PO 100 mg QD ALMAS Administration Simethicone 80 mg 05/03/24 13:46 Simethicone Chew 80 Mg Tablet PO TID PRN Gas Sodium Chloride 10 ml 05/03/24 07:57 Sodium Chloride Flush 0.9% 10 Ml Syringe IVP PRN PRN NEEDED PER PROVIDER ORDERS Witch Martha/Glycerin 1 pad 05/03/24 13:46 Witch Martha/Glycerin 1 Pad TOP PRN PRN PERINEAL REPAIR Objective Vital Signs/Intake & Output Vital Signs: Vital Signs x48h Temp Pulse Resp BP Pulse Ox 05/04/24 07:56 36.5 C 85 16 116/82 100 Intake & Output: Intake & Output 05/01/24 05/02/24 05/03/24 05/04/24 23:59 23:59 23:59 23:59 Intake Total 1512 / 1512 Balance 1512 / 1512 Weight (kg) 76.204 kg Lab Results 05/03/24 08:20
[2024-05-05 03:39] VITALS: BP 113/67; TEMP 98.4; O2SAT 97
--- NOTE | 2024-05-05 11:53 | Discharge Summary ---
Discharge Summary HOSPITAL COURSE Hospital Course: Brief History: She is a patient of [facility] who presented on 05/03/2024 for elective induction of labor. Cervical exam was deferred initially however most recent office exam was 480/-1 and vertex with intact membranes. Pitocin was initiated for induction of labor with a maximum infusion rate of 4mU/min. She precipitously progressed to deliver a viable male infant on 04/02/2025 @ 1256. Perineum intact. Apgars were 8/9 at 1 and 5 minutes respectively. QBL 200 mL. She has been doing well in her course. She is ambulating and tolerating a regular diet. She is urinating without difficulty and her lochia is normal. Her pain is well controlled with oral medications. She will be discharged home today on day #2 with instructions to continue taking her vitamin while and to continue taking Ibuprofen and Tylenol over the counter as needed for pain management. In addition she has been sent an updated Rx for sertrailne 100mg to [facility] as previously prescribed. She intends to follow up with myself at [facility] in 1 week for routine visit or sooner if needed. She has been given precautions to call if she has any worsening fevers, chills, abdominal pain, increased vaginal bleeding or foul smelling vaginal lochia. Physical Exam: Normocephalic, atraumatic. Heart RRR w/o M/G/R, lungs CTAB, abdomen soft and nontender with fundus firm at U-1, perineum intact, light lochia rubra, bilateral LE's no edema. Mood is good. ALLERGIES Allergies Allergy/AdvReac Type Severity Reaction Status Date / Time No Known Drug Allergies Allergy Verified 05/01/24 11:31 MEDICATIONS Ambulatory Orders Medication Instructions Recorded Confirmed sertraline 100 mg tablet 100 mg PO QDAY 02/09/24 05/03/24 LABS 05/03/24 08:20 Discharge Plan Discharge Patient Disposition: Home, Self Care Prescriptions: Continued sertraline 100 mg tablet 100 mg PO QDAY Discontinued famotidine [Pepcid] 20 mg tablet 20 mg PO BID Qty: 180 0RF aspirin [Adult Aspirin Regimen] 81 mg tablet,delayed release (DR/EC) 81 mg PO QDAY Print Language: Macedonian Patient Instructions: Vaginal After, Self Care
--- NOTE | 2024-05-05 13:54 | Labor Flowsheet ---
Labor Flowsheet Datetime Report Generated by CPN: 05/05/2024 13:54 Datetime: 05/05/2024 10:40 VITAL SIGNS NBP Sys/Bere/Mean (mmHg): 146 : 86 : 99 Pulse: 79 Datetime: 05/04/2024 04:16 Respirations: 17 SpO2 (%): 98 Temperature (C): 36.5 Temperature Route: Oral Datetime: 05/03/2024 16:00 Stage of : Datetime: 05/03/2024 12:46 MEDICATIONS Pitocin (milliunits): Discontinued PATIENT CARE Patient Position/Activity: Right Lateral STAGE 2 Pushing: Coached on Pushing; Urge to Push; Refusing to Push Datetime: 05/03/2024 12:45 UTERINE ACTIVITY Monitor Mode: External Frequency (min): 2-3 Quality: Strong Duration (sec): 60-80 Pattern: Normal: <= 5 Contractions in 10 Minutes Resting Tone (Palpate): Relaxed ASSESSMENT A Monitor Mode: Doppler FHR Baseline Rate : 140 Variability: Moderate 6-25 bpm Accelerations: 15X15 Decelerations: Variable; Prolonged Category: Category II Comments: recurrent variable decelerations into prolonged deceleration, pt starting to push Datetime: 05/03/2024 12:24 Patient Care Comments: stool Datetime: 05/03/2024 12:17 Actions for Decelerations: IV Bolus Datetime: 05/03/2024 12:13 Monitor Interventions for UA: [facility] Adjusted Datetime: 05/03/2024 12:01 Contraction Comments: RN troubleshooting toco, remains at bedside Datetime: 05/03/2024 11:50 COMMUNICATION Communication Comments: CNM Milka aware of tracing Datetime: 05/03/2024 11:46 Monitor Interventions for FHR: Ultrasound Adjusted Datetime: 05/03/2024 11:45 Pitocin Checklist: At Least 1 Acceleration of 15 bpm x 15 Seconds in 30 Minutes or Adequate Variabi lity; No More than 1 Late Deceleration Occurred in Past 30 Minutes; No More than 2 Variable Decelerat ions > 60 Seconds in Duration and decreasing >60 bpm in 30 minutes; No More than 5 Uterine Contractio ns in 10 Minutes for any 20 Minute Interval; Uterus Palpates Soft between Contractions Datetime: 05/03/2024 11:40 Comfort Measures: Hot Shower/Tub/Spa Datetime: 05/03/2024 11:30 Medication Comments: per pt request LaborFlag: Labor Datetime: 05/03/2024 08:00 MATERNAL ASSESSMENT Level of Consciousness: Alert DTR's/Clonus: DTRs 2+; No Clonus Headache: Denies Nausea/Vomiting: Denies
== END 2024-05-05 13:53 | disposition home or self-care (01) | DRG 807 ==
LOC: WFO 07:47 → FBP 07:53
PROVIDERS: ADMIT Nurse Practitioner Obstetrics & Gynecology; ATTEND Nurse Practitioner Obstetrics & Gynecology